=== PATIENT | male | born 1980 | race Caucasian/White ===

== ENCOUNTER 2023-03-08 16:44 | Emergency (ER) | payer SELFPAY ==
[2023-03-08] MEDS ORDERED: AMOX500T2 PO (23:27)
[2023-03-08] MEDS ORDERED: SULF1TAB48 MT (23:27)
== END 2023-03-08 17:56 | disposition left against medical advice (07) ==
LOC: ER 16:44
DX: H57.89 Other specified disorders of eye and adnexa (principal); Z53.21 Procedure and treatment not carried out due to patient leaving prior to being seen by health care provider
CPT/HCPCS: 99281

== ENCOUNTER 2023-03-08 20:17 | Emergency (ER) | payer SELFPAY ==
[~2023-03-08] VITALS: Ht 185.4 cm; Wt 81.1 kg
[2023-03-08 21:36] VITALS: BP 127/80
[2023-03-08] MEDS ORDERED: SULF1TAB48 MT (23:27)
[2023-03-08] MEDS ORDERED: AMOX500T2 PO (23:27)
== END 2023-03-08 23:54 | disposition home or self-care (01) ==
LOC: ER 20:17
DX: L03.213 Periorbital cellulitis (principal)
CPT/HCPCS: 99283

== ENCOUNTER 2023-07-10 16:16 | Inpatient (IN) | payer SELFPAY ==
[~2023-07-10] VITALS: Ht 185.4 cm; Wt 81.2 kg
[~2023-07-10 16:16] MED LIST: AMOX500T2 PO; SULF1TAB48 MT
[2023-07-10] MEDS ORDERED: FOLIC ACID 1 MG, THIAMINE HCL 100 MG, MVI, ADULT NO.1 10 ML in DEXTROSE 5% WATER 1,000 ML IV ONE ×4 (17:30)
[2023-07-10] MEDS ORDERED: LORAZEPAM 2MG/ML CPJ IV ONE (17:30)
[2023-07-10 17:46] LABS: BASOPHILS % 0.3 % (0.0-2.0); DIFFERENTIAL COMMENT 0; EOSINOPHILS % 0.1 % (0.0-5.0); HEMATOCRIT. 43.4 % (42.0-52.0); LYMPHOCYTES % 12.9 % (20.0-50.0); MEAN CORPUSCULAR HEMOGLOBIN 32.5 pg (28.0-32.0); MEAN CORPUSCULAR HGB CONC 32.4 g/dL (31.0-37.0); MEAN CORPUSCULAR VOLUME 100.2 fL (80.0-94.0); MEAN PLATELET VOLUME 8.9 fl (7.4-10.4); MONOCYTES % 12.1 % (2.0-8.0); NEUTROPHILS % 74.6 % (40.0-76.0); PLATELET 115 x1000/uL (130-400); RED BLOOD CELL COUNT 4.32 mill/uL (4.7-6.1); RED CELL DISTRIBUTION WIDTH 16.2 % (11.6-14.6); WHITE BLOOD COUNT 11.2 x1000/uL (4.5-11.0)
[2023-07-10 17:58] LABS: CHLORIDE 102 mEq/L (98-107); INDEX HEMOLYSI 1 (1-3); INDEX ICTERIC 1 (1-4); INDEX LIPEMIC 1 (1-3); POTASSIUM 3.5 mEq/L (3.5-5.1); SODIUM 137 mEq/L (136-145)
[2023-07-10 17:59] LABS: ALBUMIN 4.3 g/dL (3.4-5.0); CALCIUM 10.5 mg/dL (8.5-10.1); CARBON DIOXIDE 14 mEq/L (21-32); GLUCOSE 135 mg/dL (70-105); UREA NITROGEN BLOOD 6 mg/dL (7-21)
[2023-07-10 18:04] LABS: ALANINE AMINOTRANSFERASE 130 IU/L (13-61); ASPARTATE AMINOTRANSFERASE 323 IU/L (15-37); BILIRUBIN TOTAL 1.6 mg/dL (0.1-1.0); CREATININE 0.9 mg/dL (0.6-1.3); ETHANOL BLOOD 13 mg/dL (<10); PROTEIN TOTAL 9.3 g/dL (6.0-8.3)
[2023-07-10] MEDS ORDERED: IPRATROPIUM/ALBUTEROL 0.5-3(2.5)MG/3ML NEB HHN PRN (19:45)
[2023-07-10] MEDS ORDERED: ACETAMINOPHEN 325MG TABLET PO PRN ×2 (19:45)
[2023-07-10] MEDS ORDERED: ONDANSETRON HCL 4MG/2ML INJ IV PRN (19:45)
[2023-07-10] MEDS ORDERED: CLONIDINE 0.1MG TABLET PO PRN (19:45)
[2023-07-10] MEDS ORDERED: HYDROCODONE/ACETAMINOPHEN 5/325MG TABLET PO PRN (19:45)
[2023-07-10] MEDS ORDERED: DOCUSATE SODIUM 100MG CAPSULE PO PRN (19:45)
[2023-07-10] MEDS ORDERED: LORAZEPAM 0.5MG TABLET PO PRN (19:45)
[2023-07-10] MEDS ORDERED: NALOXONE HCL 0.4MG/ML VIAL IV PRN (20:00)
[2023-07-10 20:03] LABS: PROTHROMBIN TIME 10.8 sec (9.6-11.0)
[2023-07-10 22:00] VITALS: BP 141/95; PULSE 95; RESP 18; TEMP 99.1; TEMP 99.4
[2023-07-10] MEDS: CHLORDIAZEPOXIDE 25MG CAPSULE PO SCH (22:59)
[2023-07-11] VITALS: BP 141/95; PULSE 92; RESP 18; TEMP 98.4
[2023-07-11 04:00] VITALS: BP 119/75; PULSE 90; RESP 18; TEMP 99.4
[2023-07-11] MEDS: CHLORDIAZEPOXIDE 25MG CAPSULE PO SCH ×3 (05:36→21:19)
[2023-07-11 06:33] LABS: CHLORIDE 101 mEq/L (98-107); INDEX HEMOLYSI 1 (1-3); INDEX ICTERIC 1 (1-4); INDEX LIPEMIC 1 (1-3); POTASSIUM 3.5 mEq/L (3.5-5.1); SODIUM 133 mEq/L (136-145)
[2023-07-11 06:40] LABS: ALANINE AMINOTRANSFERASE 104 IU/L (13-61); ALBUMIN 3.6 g/dL (3.4-5.0); ASPARTATE AMINOTRANSFERASE 197 IU/L (15-37); BILIRUBIN TOTAL 1.7 mg/dL (0.1-1.0); CALCIUM 8.6 mg/dL (8.5-10.1); CARBON DIOXIDE 24 mEq/L (21-32); CREATININE 0.8 mg/dL (0.6-1.3); GLUCOSE 69 mg/dL (70-105); PROTEIN TOTAL 7.9 g/dL (6.0-8.3); UREA NITROGEN BLOOD 9 mg/dL (7-21)
[2023-07-11 08:00] VITALS: BP 133/87; PULSE 93; RESP 18; TEMP 98.8
[2023-07-11 12:00] VITALS: BP 117/72; PULSE 72; RESP 18; TEMP 98.2
[2023-07-11 12:19] LABS: BASOPHILS % 0.5 % (0.0-2.0); EOSINOPHILS % 0.2 % (0.0-5.0); HEMATOCRIT. 39.6 % (42.0-52.0); LYMPHOCYTES % 13.5 % (20.0-50.0); MEAN CORPUSCULAR HEMOGLOBIN 32.4 pg (28.0-32.0); MEAN CORPUSCULAR HGB CONC 32.8 g/dL (31.0-37.0); MEAN CORPUSCULAR VOLUME 98.8 fL (80.0-94.0); MEAN PLATELET VOLUME 9.7 fl (7.4-10.4); MONOCYTES % 12.9 % (2.0-8.0); NEUTROPHILS % 72.9 % (40.0-76.0); PLATELET 106 x1000/uL (130-400); RED BLOOD CELL COUNT 4.01 mill/uL (4.7-6.1); RED CELL DISTRIBUTION WIDTH 16.5 % (11.6-14.6); WHITE BLOOD COUNT 8.6 x1000/uL (4.5-11.0)
[2023-07-11 16:00] VITALS: BP 146/92; PULSE 86; RESP 18; TEMP 99.9
[2023-07-11 16:03] LABS: AMMONIA 65 uMol/L (<32)
[2023-07-11 16:23] LABS: THYROID STIMULATING HORMONE 0.46 uIU/mL (0.36-3.74)
[2023-07-11 16:28] LABS: HEPATITIS B SURFACE ANTIGEN NEGATIVE
[2023-07-11 16:31] LABS: VITAMIN B12 SERUM 575 pg/mL (211-911)
[2023-07-11 16:56] LABS: HEPATITIS B CORE AB IGM NEGATIVE; HEPATITIS C VIR.AB 0.13 INDEXVAL (0.00-0.80)
[2023-07-11 16:58] LABS: HEPATITIS A AB IGM NEGATIVE (NEGATIVE)
[2023-07-11] MEDS ORDERED: FOLIC ACID 1 MG, THIAMINE HCL 100 MG, MVI, ADULT NO.1 10 ML in DEXTROSE 5% WATER 1,000 ML IV ONE ×4 (17:00)
[2023-07-11 20:00] VITALS: BP 146/89; PULSE 92; RESP 19; TEMP 97.4
[2023-07-12] VITALS: BP 118/70; PULSE 72; RESP 20; TEMP 97.1
[2023-07-12 04:00] VITALS: BP 112/67; PULSE 60; RESP 20; TEMP 96.8
[2023-07-12] MEDS: CHLORDIAZEPOXIDE 25MG CAPSULE PO SCH ×3 (05:31→22:11)
[2023-07-12 08:00] VITALS: BP 121/86; PULSE 88; RESP 20; TEMP 97.9
[2023-07-12] MEDS: THIAMINE HCL 100MG TABLET PO SCH (08:35)
[2023-07-12] MEDS: FOLIC ACID 1MG TABLET PO SCH (08:36)
[2023-07-12] MEDS: MULTIVITAMINS,THER W-MINERALS TABLET PO SCH (08:36)
[2023-07-12 12:00] VITALS: BP 139/87; PULSE 81; RESP 20; TEMP 98.4
[2023-07-12 16:27] VITALS: BP 144/61; PULSE 81; RESP 18; TEMP 98.4
[2023-07-13] VITALS: BP 107/63; PULSE 69; RESP 20; TEMP 98.6
[2023-07-13] MEDS: CHLORDIAZEPOXIDE 25MG CAPSULE PO SCH (06:02)
[2023-07-13 08:00] VITALS: BP 122/73; PULSE 80; RESP 18; TEMP 97.6
[2023-07-13] MEDS: MULTIVITAMINS,THER W-MINERALS TABLET PO SCH (09:00)
[2023-07-13] MEDS: FOLIC ACID 1MG TABLET PO SCH (09:00)
[2023-07-13] MEDS: THIAMINE HCL 100MG TABLET PO SCH (09:01)
[2023-07-13 09:39] VITALS: BP 122/73; PULSE 80; TEMP 97.6; O2SAT 98
[2023-07-14] MEDS ORDERED: L25 MT (13:37)
== END 2023-07-13 10:00 | disposition home or self-care (01) | DRG 52 ==
LOC: ER 16:16 → EDBEDREQ 18:06 → EDBEDREQTM 18:30 → EDBEDREQ 18:30 → 8WST 21:59
PROVIDERS: ADMIT Internal Medicine; ATTEND Internal Medicine
DX: G92.8 Other toxic encephalopathy (principal); K76.0 Fatty (change of) liver, not elsewhere classified; K70.10 Alcoholic hepatitis without ascites; F10.239 Alcohol dependence with withdrawal, unspecified; S50.00XA Contusion of unspecified elbow, initial encounter; R74.01 Elevation of levels of liver transaminase levels; G40.909 Epilepsy, unspecified, not intractable, without status epilepticus; Z79.899 Other long term (current) drug therapy; X58.XXXA Exposure to other specified factors, initial encounter; Y93.89 Activity, other specified; Y92.89 Other specified places as the place of occurrence of the external cause; Y99.8 Other external cause status
CPT/HCPCS: 36415; 76700; 80053; 80061; 80320; 82140; 82550; 82607; 82746; 83036; 84443; 85025; 86705; 86709; 86803; 87340; 93005; 99285; J2060; J3411; J3490; J7070; G0480

== ENCOUNTER 2024-08-16 22:57 | Emergency (ER) | payer MEDICAID ==
[~2024-08-16] VITALS: Ht 177.8 cm; Wt 90.0 kg
[~2024-08-16 22:57] MED LIST changes: -AMOX500T2 PO; +CHLO25CA11 MT; -SULF1TAB48 MT
[2024-08-16 23:03] VITALS: O2SAT 100
[2024-08-17] MEDS: LORAZEPAM 2MG/ML INJ IV ONE (00:50)
[2024-08-17] MEDS: LEVETIRACETAM 1000MG PREMIX 100 ML IV ONE (00:51)
[2024-08-17 01:15] LABS: BASOPHILS % 0.8 % (0.0-2.0); EOSINOPHILS % 0.1 % (0.0-5.0); HEMATOCRIT. 32.9 % (42.0-52.0); HEMOGLOBIN. 10.9 g/dL (14.0-18.0); LYMPHOCYTES % 3.8 % (20.0-50.0); MEAN CORPUSCULAR HEMOGLOBIN 27.6 pg (28.0-32.0); MEAN CORPUSCULAR HGB CONC 33.3 g/dL (31.0-37.0); MEAN CORPUSCULAR VOLUME 83.1 fL (80.0-94.0); MEAN PLATELET VOLUME 7.6 fl (7.4-10.4); MONOCYTES % 7.8 % (2.0-8.0); NEUTROPHILS % 87.5 % (40.0-76.0); PLATELET 254 x1000/uL (130-400); RED BLOOD CELL COUNT 3.96 mill/uL (4.7-6.1); WHITE BLOOD COUNT 10.2 x1000/uL (4.5-11.0)
[2024-08-17 01:18] LABS: DIFFERENTIAL COMMENT 1
[2024-08-17 01:28] LABS: CHLORIDE 99 mEq/L (98-107); POTASSIUM 3.7 mEq/L (3.5-5.1); SODIUM 132 mEq/L (136-145)
[2024-08-17 01:29] LABS: CALCIUM 9.4 mg/dL (8.7-10.4); CARBON DIOXIDE 21 mEq/L (21-32)
[2024-08-17 01:32] LABS: THYROID STIMULATING HORMONE 1.47 uIU/mL (0.55-4.78)
[2024-08-17 01:34] LABS: GLUCOSE 83 mg/dL (70-105); UREA NITROGEN BLOOD 12 mg/dL (9-23)
[2024-08-17 01:55] LABS: ETHANOL BLOOD < 10 mg/dL (<10)
[2024-08-17] MEDS ORDERED: IPRATROPIUM/ALBUTEROL 0.5-3(2.5)MG/3ML NEB HHN PRN (03:00)
[2024-08-17] MEDS ORDERED: ONDANSETRON HCL 4MG/2ML INJ IV PRN (03:00)
[2024-08-17] MEDS ORDERED: ACETAMINOPHEN 325MG TABLET PO PRN (03:00)
[2024-08-17] MEDS ORDERED: LORAZEPAM 2MG/ML INJ IV PRN ×2 (03:00)
[2024-08-17] MEDS: SODIUM CHLORIDE 0.9% 500 ML IV ONE (04:26)
[2024-08-17 05:30] LABS: ALANINE AMINOTRANSFERASE 56 IU/L (10-49); ALBUMIN 4.2 g/dL (3.2-4.8); ASPARTATE AMINOTRANSFERASE 70 IU/L (<34)
[2024-08-17 05:31] LABS: BILIRUBIN DIRECT 0.3 mg/dL (<=3.0); BILIRUBIN TOTAL 0.9 mg/dL (0.1-1.0); PHOSPHORUS 4.1 mg/dL (2.5-4.9); PROTEIN TOTAL 7.3 g/dL (6.0-8.3)
[2024-08-17] MEDS: FOLIC ACID 1 MG, THIAMINE HCL 100 MG, MVI, ADULT NO.1 10 ML in DEXTROSE 5% WATER 1,000 ML IV ONE (05:57)
[2024-08-17] MEDS: CHLORDIAZEPOXIDE 25MG CAPSULE PO SCH (06:43)
[2024-08-17] MEDS ORDERED: LEVETIRACETAM 500MG in NACL 100ML PREMIX IV SCH (09:00)
[2024-08-17] MEDS: LEVETIRACETAM 500MG PREMIX 100 ML IV SCH (09:47)
[2024-08-17] MEDS: PANTOPRAZOLE SODIUM 40 MG/VIAL IV SCH (09:47)
[2024-08-17 14:30] VITALS: BP 134/83; PULSE 80; RESP 13; TEMP 37.16964; O2SAT 100
== END 2024-08-17 14:58 | disposition left against medical advice (07) ==
LOC: ER 23:12 → EDBEDREQDT 08-17 03:01 → EDBEDREQ 08-17 03:01 → EDBEDREQTM 08-17 03:01 → ER 08-17 14:58
DX: F10.239 Alcohol dependence with withdrawal, unspecified (principal); R56.9 Unspecified convulsions; Z79.899 Other long term (current) drug therapy; F12.90 Cannabis use, unspecified, uncomplicated; Y90.0 Blood alcohol level of less than 20 mg/100 ml
CPT/HCPCS: 82962; 36415 ×2; 70450; 99285; 80076; 80048; 80320; 83735; 84100; 84443; 85025; 96368; 96365; 96366; 96375; J1953; J3490 ×2; J2060; J2470; J3411; J7070; Z7610 ×3; G0480